=== PATIENT | female | born 1980 | race Caucasian/White ===

== ENCOUNTER 2019-02-06 17:20 | Emergency (ER) | payer OTHER ==
[~2019-02-06] VITALS: Ht 160 cm; Wt 80.0 kg
[2019-02-06 17:23] VITALS: Ht 160 cm; Wt 80.0 kg
[2019-02-06] MEDS ORDERED: ONDANSETRON (ODT) 4 MG TAB ODT STA (17:23)
[2019-02-06] MEDS ORDERED: LEVO125T7 PO (18:11)
[2019-02-06] MEDS ORDERED: ONDA4TAB14 PO (19:10)
--- NOTE | 2019-02-06 19:12 | ERD ---
ER Documentation Chief Complaint Chief Complaint ETOH STATES HAS PANCREATITIS WITH DIARRHEA N/V AFTER DRUG USE HPI Patient is a 38-year-old female with low thyroid disease and alcohol abuse who presents with chest pain and shortness of breath. She was brought in by ambulance. She said that she has chest pain, shortness of breath, and vomiting. She admits to drinking alcohol today. She said that she fainted. She says "I think this is all related to alcohol". She is concerned for possible pancreatitis and says that she has had this in the past. Upon review of old medical records this is the patient's first visit to the emergency department. She says that her primary doctor is at [facility]. ROS All systems reviewed and are negative except as per history of present illness. Medications Home Meds Active Scripts Ondansetron (Ondansetron Odt) 4 Mg Tab.rapdis, 4 MG PO Q6H PRN for NAUSEA AND/OR VOMITING, #10 TAB Prov:CHANEL SUAREZ MD 02/06/19 Reported Medications Levothyroxine Sodium* (Levothyroxine Sodium*) 125 Mcg Tablet, 125 MCG PO BEFORE BREAKFAST, #30 TAB 02/06/19 Allergies Allergies: Coded Allergies: No Known Allergy (Unverified , 02/06/19) PMhx/Soc Medical and Surgical Hx: pt denies Surgical Hx History of Surgery: Yes (LEFT HAND FINGER REMOVAL ) Anesthesia Reaction: No Hx Neurological Disorder: No Hx Respiratory Disorders: No Hx Cardiac Disorders: No Hx Psychiatric Problems: Yes (ALCOHOLISM) Hx Miscellaneous Medical Probl: Yes (PANCREATITIS, HYPOTHYROIDISM) Hx Alcohol Use: Yes Hx Substance Use: No Hx Tobacco Use: No Smoking Status: Never smoker FmHx Family History: diabetes Physical Exam Vitals Vital Signs Date Temp Pulse Resp B/P (MAP) Pulse Ox O2 O2 Flow FiO2 Time Delivery Rate 02/06/19 98.1 90 18 137/77 99 17:23 (97) Physical Exam Const: No acute distress Head: Atraumatic Eyes: Normal Conjunctiva ENT: Normal External Ears, Nose and Mouth. Neck: Full range of motion. No meningismus. Resp: Clear to auscultation bilaterally Cardio: Regular rate and rhythm, no murmurs Abd: Soft, minimal epigastric tenderness to palpation without rebound or guarding Skin: No petechiae or rashes Back: No midline or flank tenderness Ext: No cyanosis, or edema Neur: Awake but intoxicated Result Diagram: 02/06/19 1740 02/06/19 1740 Results 24 hrs Laboratory Tests Test 02/06/19 17:40 02/06/19 18:48 White Blood Count 7.3 10^3/ul Red Blood Count 4.39 10^6/ul Hemoglobin 13.2 g/dl Hematocrit 39.2 % Mean Corpuscular Volume 89.3 fl Mean Corpuscular Hemoglobin 30.1 pg Mean Corpuscular Hemoglobin Concent 33.7 g/dl Red Cell Distribution Width 13.6 % Platelet Count 284 10^3/UL Mean Platelet Volume 8.9 fl Immature Granulocytes % 0.300 % Neutrophils % 42.2 % Lymphocytes % 48.6 % Monocytes % 5.7 % Eosinophils % 2.2 % Basophils % 1.0 % Nucleated Red Blood Cells % 0.0 /100WBC Immature Granulocytes # 0.020 10^3/ul Neutrophils # 3.1 10^3/ul Lymphocytes # 3.6 10^3/ul Monocytes # 0.4 10^3/ul Eosinophils # 0.2 10^3/ul Basophils # 0.1 10^3/ul Nucleated Red Blood Cells # 0.0 10^3/ul Sodium Level 144 mmol/L Potassium Level 4.4 mmol/L Chloride Level 107 mmol/L Carbon Dioxide Level 27 mmol/L Anion Gap 10 Blood Urea Nitrogen 16 mg/dl Creatinine 0.86 mg/dl Est Glomerular Filtrat Rate mL/min > 60 mL/min Glucose Level 102 mg/dl Calcium Level 8.3 mg/dl Total Bilirubin 0.2 mg/dl Direct Bilirubin 0.00 mg/dl Indirect Bilirubin 0.2 mg/dl Aspartate Amino Transf (AST/SGOT) 50 IU/L Alanine Aminotransferase (ALT/SGPT) 26 IU/L Alkaline Phosphatase 70 IU/L Total Protein 7.4 g/dl Albumin 4.0 g/dl Globulin 3.40 g/dl Albumin/Globulin Ratio 1.17 Lipase 309 U/L POC Beta HCG, Qualitative NEGATIVE Current Medications Medications Dose Sig/Darius Start Time Status Last (Trade) Ordered Route PRN Stop Time Admin Dose Reason Admin Ondansetron 4 mg ONCE STAT 02/06/19 DC 02/06/19 HCl (Zofran ODT 17:23 17:46 Odt) 02/06/19 17:24 Procedures/MDM EKG read by me: Rate/Rhythm: Regular rate and rhythm at a rate of 85 Intervals: Normal Impression: No evidence of ischemia or arrhythmia Chest X-ray 1V Interpreted by me: Soft Tissue: No acute abnormalities Bones: No acute abnormalities Mediastinum/Cardiac Silhouette/Lungs: No acute abnormalities Patient is a 38-year-old female who presents with chest pain, shortness of breath, vomiting, and abdominal pain. I believe her symptoms are related to a lcohol intoxication. EKG and chest x-ray were negative. Lipase was barely above 300 and I doubt acute pancreatitis. I doubt or ectopic . I believe outpatient management is appropriate but the patient will need close follow-up with her primary doctor within 1 week. She can return for any worsening symptoms. I told her not to drink alcohol to excess and will provide a list of local outpatient detox facilities. She can return for any worsening symptoms. Departure Diagnosis: Primary Impression: Chest pain Chest pain type: unspecified Qualified Codes: R07.9 - Chest pain, unspecified Additional Impression: Alcoholic intoxication Complication of substance-induced condition: uncomplicated Qualified Codes: F10.920 - Alcohol use, unspecified with intoxication, uncomplicated Condition: Fair Patient Instructions: Chest Pain, Uncertain Cause, Alcohol Intoxication Referrals: Your doctor Additional Instructions: Call your primary care doctor TOMORROW for an appointment during the next 1-2 days.See the doctor sooner or return here if your condition worsens before your appointment time. CHANEL SUAREZ MD Feb 06, 2019 19:12
[2019-02-06 19:52] VITALS: BP 114/70; PULSE 97; RESP 18
== END 2019-02-06 19:56 | disposition home or self-care (01) ==
LOC: E/R 17:20
DX: R07.9 Chest pain, unspecified (principal); E03.9 Hypothyroidism, unspecified; F10.920 Alcohol use, unspecified with intoxication, uncomplicated
CPT/HCPCS: 71045; 80053; 81025; 83690; 85025; 93005; Z7502; Z7610